=== PATIENT | female | born 1965 | race Two or more races ===

== ENCOUNTER 2021-01-19 14:02 | Outpatient (CLI) | payer OTHER ==
[~2021-01-19 14:02] MED LIST: ATACAND32 MG PO; CARDURA XL4 MG/BOTTL PO; CATAPRES0.3 MG PO; LOPRESSOR HCT 11 TAB PO; NORVASC10 MG PO
== END 2021-01-19 14:41 | disposition home or self-care (01) ==
LOC: MRI 14:02
PROVIDERS: ATTEND Specialist/Technologist, Other Nephrology
DX: L97.509 Non-pressure chronic ulcer of other part of unspecified foot with unspecified severity (principal); N18.6 End stage renal disease
CPT/HCPCS: 73718

== ENCOUNTER 2021-02-19 09:32 | Outpatient (CLI) | payer OTHER | END 2021-02-19 10:11 | disposition home or self-care (01) | LOC: WOUND MED 09:32 | PROVIDERS: ATTEND Specialist | DX: L97.512 Non-pressure chronic ulcer of other part of right foot with fat layer exposed (principal); R60.0 Localized edema | CPT/HCPCS: G0463; A4554; A4930; A6216; A6219 ==

== ENCOUNTER 2021-02-23 10:13 | Outpatient (CLI) | payer OTHER | END 2021-02-23 11:06 | disposition home or self-care (01) | LOC: WOUND MED 10:13 | PROVIDERS: ATTEND Specialist | DX: L97.512 Non-pressure chronic ulcer of other part of right foot with fat layer exposed (principal); R60.0 Localized edema | CPT/HCPCS: 97602; A4554; A4930; A6216; A6219; A6266 ==

== ENCOUNTER 2021-02-27 10:35 | Outpatient (CLI) | payer OTHER | END 2021-02-27 11:00 | disposition home or self-care (01) | LOC: WOUND MED 10:35 | PROVIDERS: ATTEND Specialist | DX: L97.512 Non-pressure chronic ulcer of other part of right foot with fat layer exposed (principal); R60.0 Localized edema | CPT/HCPCS: 11042; A4554; A4930; A6216; A6219 ==

== ENCOUNTER 2021-04-13 08:58 | Outpatient (CLI) | payer OTHER | END 2021-04-13 12:26 | disposition home or self-care (01) | LOC: WOUND CARE 08:58 | PROVIDERS: ATTEND Specialist | DX: L97.412 Non-pressure chronic ulcer of right heel and midfoot with fat layer exposed (principal); R60.0 Localized edema | CPT/HCPCS: 11042; A4554; A4930; A6216; A6219 ==

== ENCOUNTER 2021-04-20 07:58 | Outpatient (CLI) | payer OTHER | END 2021-04-20 10:50 | disposition home or self-care (01) | LOC: WOUND MED 07:58 | PROVIDERS: ATTEND Specialist | DX: L97.412 Non-pressure chronic ulcer of right heel and midfoot with fat layer exposed (principal); R60.0 Localized edema | CPT/HCPCS: 11042; A4554; A4930; A6216; A6219 ==

== ENCOUNTER 2021-04-27 09:24 | Outpatient (CLI) | payer OTHER | END 2021-04-27 10:20 | disposition home or self-care (01) | LOC: WOUND MED 09:24 | PROVIDERS: ATTEND Specialist | DX: L97.412 Non-pressure chronic ulcer of right heel and midfoot with fat layer exposed (principal); R60.0 Localized edema | CPT/HCPCS: 11042; A4554; A4930; A6216; A6219 ==

== ENCOUNTER 2021-05-04 10:17 | Outpatient (CLI) | payer OTHER | END 2021-05-04 11:13 | disposition home or self-care (01) | LOC: WOUND MED 10:17 | PROVIDERS: ATTEND Specialist | DX: L97.412 Non-pressure chronic ulcer of right heel and midfoot with fat layer exposed (principal); R60.0 Localized edema | CPT/HCPCS: 11042; A4554; A4930; A6216 ==